=== PATIENT | male | born 1965 | race African-American/Black ===

== ENCOUNTER 2024-04-19 10:07 | Emergency (ER) | payer OTHER, MEDICAID ==
[~2024-04-19] VITALS: Ht 182.9 cm; Wt 123.0 kg
[2024-04-19 10:18] VITALS: O2SAT 95
[2024-04-19] MEDS: BACITRACIN ZINC OINT UDPKT TOP ONE (11:15)
[2024-04-19] MEDS: LIDOCAINE HCL/PF 1% 10 MG/ML 5ML VIAL INFIL ONE (11:15)
[2024-04-19 11:28] LABS: WHITE BLOOD COUNT 6.2 x1000/uL (4.5-11.0)
[2024-04-19] MEDS: TETANUS, DIPHTHERIA, PERTUSSIS VAC/PF 0.5ML (>10YR OLD) IM ONE (11:32)
[2024-04-19 11:33] LABS: HEMATOCRIT. 44.5 % (42.0-52.0); HEMOGLOBIN. 14.6 g/dL (14.0-18.0); MEAN CORPUSCULAR HEMOGLOBIN 28.9 pg (28.0-32.0); MEAN CORPUSCULAR HGB CONC 32.8 g/dL (31.0-37.0); MEAN CORPUSCULAR VOLUME 88.1 fL (80.0-94.0); MEAN PLATELET VOLUME 8.5 fl (7.4-10.4); PLATELET 294 x1000/uL (130-400); RED BLOOD CELL COUNT 5.05 mill/uL (4.7-6.1); RED CELL DISTRIBUTION WIDTH 15.4 % (11.6-14.6)
[2024-04-19 11:35] LABS: DIFFERENTIAL COMMENT 1
[2024-04-19 11:37] LABS: CHLORIDE 98 mEq/L (98-107); INR 1.3; POTASSIUM 4.6 mEq/L (3.5-5.1); PROTHROMBIN TIME 14.7 sec (9.6-11.0); SODIUM 131 mEq/L (136-145)
[2024-04-19 11:38] LABS: CARBON DIOXIDE 29 mEq/L (21-32)
[2024-04-19 11:39] LABS: CALCIUM 8.8 mg/dL (8.7-10.4)
[2024-04-19 11:43] LABS: CREATININE 1.3 mg/dL (0.6-1.3); GLUCOSE 113 mg/dL (70-105); UREA NITROGEN BLOOD 14 mg/dL (9-23)
[2024-04-19 11:44] LABS: TROPONIN I HIGH SENSITIVITY 6 ng/L (3.0-53)
[2024-04-19 12:02] LABS: ANISOCYTOSIS 1+; PLATELET ESTIMATE NORMAL
[2024-04-19] MEDS: SODIUM CHLORIDE 0.9% 1,000 ML IV ONE (12:45)
[2024-04-19 13:23] LABS: TROPONIN I HIGH SENSITIVITY < 4 ng/L (3.0-53)
[2024-04-19 14:11] LABS: CLARITY URINE CLOUDY (CLEAR); COLOR URINE DARK YELLOW (YELLOW); GLUCOSE URINE NEGATIVE (NEGATIVE); KETONES URINE 2+ (NEGATIVE); LEUKOCYTE ESTERASE URINE 1+ (NEGATIVE); NITRITE URINE NEGATIVE (NEGATIVE); OCCULT BLOOD URINE 3+ (NEGATIVE); PH URINE 6.5 (4.5-8.0); PROTEIN URINE 2+ (NEGATIVE); SPECIFIC GRAVITY URINE 1.019 (1.005-1.030)
[2024-04-19 14:27] LABS: BACTERIA URINE 1+; SQUAMOUS EPITHELIAL CELL URINE 1+ /lpf (RARE/1+); YEAST URINE NONE SEEN
[2024-04-19] MEDS: MAGNESIUM/ALUMINUM HYDROXIDE/SIMETHICONE 30ML UDC PO ONE (15:19)
[2024-04-19] MEDS: FAMOTIDINE 20MG TABLET PO ONE (15:19)
[2024-04-19] MEDS: CEFTRIAXONE 2GM/50ML 50 ML IV ONE (15:48)
[2024-04-19 16:36] VITALS: BP 103/66; PULSE 95; RESP 20; TEMP 36.61404; O2SAT 96
== END 2024-04-19 16:35 | disposition short-term general hospital (02) ==
LOC: ER 10:25
DX: S01.111A Laceration without foreign body of right eyelid and periocular area, initial encounter (principal); R55 Syncope and collapse; N39.0 Urinary tract infection, site not specified; E87.1 Hypo-osmolality and hyponatremia; K21.9 Gastro-esophageal reflux disease without esophagitis; X58.XXXA Exposure to other specified factors, initial encounter; Y93.89 Activity, other specified; Y92.89 Other specified places as the place of occurrence of the external cause; Y99.8 Other external cause status
CPT/HCPCS: 80048; 81003; 83605; 85025; 85610; 87040; 84484; 36415; 84145; 71045; 70450; 74176; 90715; 93005; 12011; 90471; 96361; 96365; 99291; J0696; J7030; Z7610 ×2; C1893; 99285